=== PATIENT | male | born 2005 | race Two or more races ===

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

== ENCOUNTER 2025-01-29 12:20 | Emergency (ER) | payer OTHER ==
[~2025-01-29] VITALS: Ht 167.6 cm; Wt 81.3 kg
[~2025-01-29 12:20] MED LIST changes: +SUCR1SUS26 PO
[2025-01-29 15:45] LABS: Hemoglobin 13.0 g/dL (13.5-17.5); Nucleated Red Blood Cells % 0.1 %
[2025-01-29 15:47] LABS: Chloride 105 mmol/L (98-107); Hematocrit 40.3 % (41.0-53.0); Mean Corpuscular Hemoglobin 21.3 pg (28.0-32.0); Mean Corpuscular Volume 66.3 fL (80.0-100.0); Potassium 4.5 mmol/L (3.5-5.1); Sodium 140 mmol/L (136-145)
[2025-01-29 15:48] LABS: Anion Gap 8 (5-15); Calcium 9.7 mg/dL (8.7-10.4); Carbon Dioxide 27 mmol/L (20-31)
[2025-01-29 15:53] LABS: BUN/Creatinine Ratio 26.3 (10.0-20.0); Blood Urea Nitrogen 20 mg/dL (9-23); Glucose 88 mg/dL (74-106); Lipase 27 U/L (12-53)
--- NOTE | 2025-01-29 15:58 | ED.PDOC ---
GI ASSESSMENT HPI Comments 19M presents to the ER w/ prior MHx of Gastric Ulcer, Anemia, PUD, Peptic Ulcer Clarisse and the c/c of ABD pain. Pt reports on having had a sudden onset of palpitation/near syncope on Monday of 01/27/25. On 01/28/25 the pt started to have Epigastric/LUQ pain which was constant onto today. Denies any symptoms at this time. Patient denies any SOB, dizziness, numbness, weakness, tingling, fever, chills, or recent fall. Chief Complaint: Abdominal Pain Time Seen by MD: 15:50 Reviewed Notes: Nurses Notes, Medications, Allergies Allergies: Coded Allergies: NO KNOWN ALLERGIES (Unverified , 10/20/23) Home Meds Active Scripts Ondansetron Odt 4MG Tab (ZOFRAN PO) 4 Mg Tb, 4 MG PO TID for 10 Days, #30 TAB ODT TAB-DISSOLVE IN MOUTH, THEN SWALLOW Prov:BRAYDEN KIDD MD 01/29/25 Aluminum Hydroxide-Mag Carb (Gaviscon Extra Strength) 1 Chw Chw, 1 CHW PO TID PRN for 10 Days, #30 TAB.CHEW Prov:BRAYDEN KIDD MD 01/29/25 Pantoprazole Sodium Sesquihydr (Protonix) 40 Mg Tab, 40 MG PO DAILY for 30 Days, #30 TAB Prov:BRAYDEN KIDD MD 01/29/25 Sucralfate (CARAFATE SUSP) 1 Gm/10 Ml Ss, 1 GM PO QID@0600,1130,1700,2200, #1200 ML Prov:KYLE MANCIA MD 05/29/24 Pantoprazole Sodium Sesquihydr (Protonix) 40 Mg Tab, 40 MG PO BID, #60 TAB 2 Refills Prov:KYLE MANCIA MD 05/29/24 Polyethylene Glycol 3350 (Miralax) 17 Gm Pow, 17 GM PO DAILY for 1 Day, #1 POW Prov:CARMITA FULLER MD 02/03/24 Polyethylene Glycol 3350 (Miralax) 17 Gm Pow, 17 GM PO DAILY for 1 Day, POW Prov:CARIMTA FULLER MD 02/03/24 Thiamine Hcl (VITAMIN B-1) 100 Mg Tb, 100 MG PO DAILY@1800 for 10 Days, #10 TAB Prov:SANG CORONA MD 10/23/23 Folic Acid (Folic Acid) 1 Mg Tab, 1 MG PO DAILY@1800 for 10 Days, #10 TAB Prov:SANG CORONA MD 10/23/23 Information Source: Patient Mode of Arrival: Ambulatory Timing: Days Duration: Since onset, Days Prehospital treatment: None Quality: Aching Vomitus: None Stool: Normal Severity: Moderate Recent: None Recent Hx of: None Pain Location: Epigastric, LUQ Associated sign and symptoms: Abdominal Pain Past Medical History PAST MEDICAL HISTORY: Anemia, PUD Past Medical History (Other): Gastric Ulcer, Peptic Ulcer Inez Surgical History: Denies all surgeries Family History Family History: Reviewed,noncontributory to illness, Unknown Social History Smoker: Unknown Alcohol: Sober Drugs: Unknown Lives In: Home Constitutional: denies: chills, diaphoresis, fatigue, fever, malaise, sweats, weakness, others EENTM: denies: blurred vision, double vision, ear bleeding, ear discharge, ear drainage, ear pain, ear ringing, eye pain, eye redness, hearing loss, mouth pain, mouth swelling, nasal discharge, nose bleeding, nose congestion, nose pain, photophobia, tearing, throat pain, throat swelling, voice changes, others Respiratory: denies: cough, hemoptysis, orthopnea, SOB at rest, shortness of breath, SOB with excertion, stridor, wheezing, others Cardiovascular: reports: palpitations, syncope (near); denies: chest pain, dizzy spells, diaphoresis, Dyspnea on exertion, edema, irregular heart beat, left arm pain, lightheadedness, PND, others Gastrointestinal: reports: abdominal pain; denies: abdomen distended, blood streaked bowels, constipated, diarrhea, dysphagia, difficulty swallowing, h ematemesis, melena, nausea, poor appetite, poor fluid intake, rectal bleeding, rectal pain, vomiting, others Genitourinary: denies: burning, dysuria, flank pain, frequency, hematuria, incontinence, penile discharge, penile sore, pain, testicle pain, testicle swelling, urgency, others Neurological: denies: dizziness, fainting, headache, left sided numbness, left sided weakness, numbness, paresthesia, pre-existing deficit, right sided numbness, right sided weakness, seizure, speech problems, tingling, tremors, weakness, others Musculoskeletal: denies: back pain, gout, joint pain, joint swelling, muscle pain, muscle stiffness, neck pain, others Integumetry: denies: bruises, change in color, change in hair/nails, dryness, laceration, lesions, lumps, rash, wounds, others Allergic/Immunocompromised: denies: Difficulty Healing, Frequent Infections, Hives, Itching, others Hematologic/Lymphatic: denies: anemia, blood clots, easy bleeding, easy bruising, swollen glands, others Endocrine: denies: excessive hunger, excessive sweating, excessive thirst, excessive urination, flushing, intolerance to cold, intolerance to heat, unexplained weight gain, unexplained weight loss, others Psychiatric: denies: anxiety, bipolar disorder, depression, hopeless, panic disorder, schizophrenia, sleepless, suicidal, others All Other Systems: Reviewed and Negative Physical Exam General Appearance: Mild Distress, Normal HEENT: Normal ENT Inspection, PERRL/EOMI, Pharynx Normal, TMs Normal Neck: Full Range of Motion, Non-Tender, Normal, Normal Inspection Respiratory: Chest Non-Tender, Lungs Clear, No Accessory Muscle Use, No Re spiratory Distress, Normal Breath Sounds Cardiovascular: No Edema, No JVD, No Murmur, No Gallop, Normal Peripheral Pulses, Regular Rate/Rhythm Breast Exam: Deferred Gastrointestinal: Epigastric, No Organomegaly, No Pulsatile Mass, Normal Bowel Sounds, Soft, Tenderness Genitalia: Deferred Pelvic: Deferred Rectal: Deferred Extremities: No calf tenderness, Normal capillary refill, Normal inspection, Normal range of motion, Non-tender, No pedal edema Musculoskeletal : Apperance: Normal Neurologic: Alert, 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 Was a procedure done?: No GI differential Dx Differential Diagnosis: Gastritis/PUD, Pancreatitis, Dehydration, Diabetes/ DKA, Electrolyte Imbalance X-Ray, Labs, Meds, VS Vital Signs Date Time Temp Pulse Resp B/P (MAP) Pulse Ox O2 Delivery O2 Flow Rate FiO2 01/29/25 12:22 97.6 81 15 129/74 99 97.6 Lab Test 01/29/25 15:19 Range/Units White Blood Count 8.0 4.4-10.8 10^3/uL Red Blood Count 6.08 H 4.5-5.90 10^6/uL Hemoglobin 13.0 L 13.5-17.5 g/dL Hematocrit 40.3 L 41.0-53.0 % Mean Corpuscular Volume 66.3 L 80.0-100.0 fL Mean Corpuscular Hemoglobin 21.3 L 28.0-32.0 pg Mean Corpuscular Hemoglobin Concent 32.2 32.0-36.0 g/dL Red Cell Distribution Width 20.5 H 11.8-14.3 % Platelet Count 244 140-450 10^3/uL Mean Platelet Volume 9.0 6.9-10.8 fL Neutrophils (%) (Auto) 68.1 37.0-80.0 % Lymphocytes (%) (Auto) 24.3 10.0-50.0 % Monocytes (%) (Auto) 7.2 0.0-12.0 % Eosinophils (%) (Auto) 0.2 0.0-7.0 % Basophils (%) (Auto) 0.2 0.0-2.0 % Neutrophils # (Auto) 5.5 1.6-8.6 10 ^3/uL Lymphocytes # (Auto) 1.9 0.4-5.4 10 ^3/uL Monocytes # (Auto) 0.6 0-1.3 10 ^3/uL Eosinophils # (Auto) 0 0-0.8 10 ^3/uL Basophils # (Auto) 0 0-0.2 10 ^3/uL Nucleated Red Blood Cells 0.1 % Sodium Level 140 136-145 mmol/L Potassium Level 4.5 3.5-5.1 mmol/L Chloride Level 105 98-107 mmol/L Carbon Dioxide Level 27 20-31 mmol/L Anion Gap 8 5-15 Blood Urea Nitrogen 20 9-23 mg/dL Creatinine 0.76 0.700-1.30 mg/dL Glomerular Filtration Rate Calc 133 >90 mL/min BUN/Creatinine Ratio 26.3 H 10.0-20.0 Serum Glucose 88 74-106 mg/dL Calcium Level 9.7 8.7-10.4 mg/dL Lipase 27 12-53 U/L X-Ray, Labs, Meds, VS Comment Patient came to the emergency department complaining of epigastric pain and also nausea CBC normal BNP negative Lipase 27 Patient will be discharged home to follow up with his PCP in his GI Time of 1ST Reevaluation: 16:20 Reevaluation 1ST: Unchanged Time of 2ND Reevaluation: 16:08 Reevaluation 2ND: Improved Consultation: PCP, GI Patient Education/Counseling: Diagnosis, Treatment, Prognosis, Need For Follow Up Family Education/Counseling: Diagnosis, Treatment, Prognosis, Need For Follow Up, No Family Present SEPSIS Sepsis Screen Date sepsis recognized/suspect: Jan 29, 2025 Time Sepsis recognized/suspect: 4 Recent Procedure: No On Antibiotic Therapy: No Respiratory Rate >20: No Heart Rate >90: No Temp<36 C (96.8 F) or >38.3 C: No SBP <90 or MAP <65 mmHG: No New Acute Mental Status Change: No Is the patient on CPAP, BIPAP,: No Vital Signs Date Time Temp Pulse Resp B/P (MAP) Pulse Ox O2 Delivery O2 Flow Rate FiO2 01/29/25 12:22 97.6 81 15 129/74 99 97.6 Laboratory Tests Test 01/29/25 15:19 White Blood Count 8.0 10^3/uL (4.4-10.8) Departure 1 Departure Time of Disposition: 16:08 Impression: Primary Impression: Abdominal pain Qualified Codes: R10.13 - Epigastric pain Additional Impression: Peptic ulcer disease Disposition: HOME / SELF CARE / HOMELESS Condition: Fair Additional Instructions: Follow up with your PCP or 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 probably has a flare-up of your peptic ulcer disease e-Prescriptions Ondansetron Odt 4MG Tab (ZOFRAN PO) 4 Mg Tb 4 MG PO TID for 10 Days, #30 TAB ODT TAB-DISSOLVE IN MOUTH, THEN SWALLOW Prov: BRAYDEN KIDD MD 01/29/25 Aluminum Hydroxide-Mag Carb (Gaviscon Extra Strength) 1 Chw Chw 1 CHW PO TID PRN for 10 Days, #30 TAB.CHEW Prov: BRAYDEN KIDD MD 01/29/25 Pantoprazole Sodium Sesquihydr (Protonix) 40 Mg Tab 40 MG PO DAILY for 30 Days, #30 TAB Prov: BRAYDEN KIDD MD 01/29/25 Discharged With: Self Critical Care Note Critical Care Time?: No Stability Stability form required: No Heart Score Heart Score: Heart Score Response (Comments) Value History N/A 0 EKG N/A 0 Age <45 0 Risk Factors No known risk factors 0 Troponin N/A 0 Total 0 I personally scribed for BRAYDEN KIDD MD ([email or web address]) on 01/29/25 at 15:58. Electronically submitted by Shahzad Manzanares ([email or web address]). BRAYDEN KIDD MD Jan 29, 2025 15:58
[2025-01-29] MEDS ORDERED: ALUMCHW6 PO (16:14)
[2025-01-29] MEDS ORDERED: ZOFR4T PO (16:14)
[2025-01-29] MEDS ORDERED: PANT40TA2 PO (16:14)
[2025-01-29] MEDS: DONNATAL 5ml ORAL Elix (BELLADONNA ALK-PHENOBARB) PO ONE (16:36)
[2025-01-29] MEDS: MAALOX PLUS or MAALOX 30 ML PO ONE (16:37)
[2025-01-29] MEDS: PANTOPRAZOLE 40 MG TAB PO ONE (16:37)
[2025-01-29] MEDS: LIDOCAINE VISCOUS 2% 15ML UD PO ONE (16:37)
[2025-01-29 17:00] VITALS: BP 132/67; PULSE 76; RESP 18; TEMP 98; O2SAT 98
== END 2025-01-29 17:05 | disposition home or self-care (01) ==
LOC: ER 12:20
DX: K27.9 Peptic ulcer, site unspecified, unspecified as acute or chronic, without hemorrhage or perforation (principal); R10.13 Epigastric pain; Z79.899 Other long term (current) drug therapy
CPT/HCPCS: 36415; 80048; 83690; 85025

== ENCOUNTER 2025-02-03 12:17 | Emergency (ER) | payer OTHER ==
[~2025-02-03] VITALS: Ht 165.1 cm; Wt 84.8 kg
[~2025-02-03 12:17] MED LIST changes: +ALUMCHW6 PO; +ZOFR4T PO
--- NOTE | 2025-02-03 13:06 | ED.PDOC ---
History of Present Illness HPI Comments This is a 19 year old male presenting to the ED with chief complaint of work clearance. Patient reports that he had been seen on 01/29/25 for abdominal pain. Patient relays that he was advised by his job to obtain clearance to go back to work from the ED. Patient denies any N/V, chest pain, SOB, headache, numbness, weakness, or injury. Chief Complaint: Medical Clearance Time Seen by MD: 13:04 Reviewed Notes: Nurses Notes, Medications, Allergies Allergies: Coded Allergies: NO KNOWN ALLERGIES (Unverified , 10/20/23) Home Meds Active Scripts Ondansetron Odt 4MG Tab (ZOFRAN PO) 4 Mg Tb, 4 MG PO TID for 10 Days, #30 TAB ODT TAB-DISSOLVE IN MOUTH, THEN SWALLOW Prov:BRAYDEN KIDD MD 01/29/25 Aluminum Hydroxide-Mag Carb (Gaviscon Extra Strength) 1 Chw Chw, 1 CHW PO TID PRN for 10 Days, #30 TAB.CHEW Prov:BRAYDEN KIDD MD 01/29/25 Pantoprazole Sodium Sesquihydr (Protonix) 40 Mg Tab, 40 MG PO DAILY for 30 Days, #30 TAB Prov:BRAYDEN KIDD MD 01/29/25 Sucralfate (CARAFATE SUSP) 1 Gm/10 Ml Ss, 1 GM PO QID@0600,1130,1700,2200, #1200 ML Prov:KYLE MANCIA MD 05/29/24 Pantoprazole Sodium Sesquihydr (Protonix) 40 Mg Tab, 40 MG PO BID, #60 TAB 2 Refills Prov:KYLE MANCIA MD 05/29/24 Polyethylene Glycol 3350 (Miralax) 17 Gm Pow, 17 GM PO DAILY for 1 Day, #1 POW Prov:CARMITA FULLER MD 02/03/24 Polyethylene Glycol 3350 (Miralax) 17 Gm Pow, 17 GM PO DAILY for 1 Day, POW Prov:CARMITA FULLER MD 02/03/24 Thiamine Hcl (VITAMIN B-1) 100 Mg Tb, 100 MG PO DAILY@1800 for 10 Days, #10 TAB Prov:SANG CORONA MD 10/23/23 Folic Acid (Folic Acid) 1 Mg Tab, 1 MG PO DAILY@1800 for 10 Days, #10 TAB Prov:SANG CORONA MD 10/23/23 Information Source: Patient Mode of Arrival: Ambulatory Severity: Mild Timing: Days Duration: Since onset Prehospital treatment: None Past Medical History PAST MEDICAL HISTORY: Anemia, PUD Surgical History: Denies all surgeries Family History Family History: Reviewed,noncontributory to illness, Unknown Social History Smoker: Non-Smoker, Unknown Alcohol: Sober Drugs: Denies Drug Use Lives In: Home Constitutional: denies: chills, diaphoresis, fatigue, fever, malaise, sweats, weakness, others EENTM: denies: blurred vision, double vision, ear bleeding, ear discharge, ear drainage, ear pain, ear ringing, eye pain, eye redness, hearing loss, mouth pain, mouth swelling, nasal discharge, nose bleeding, nose congestion, nose pain, photophobia, tearing, throat pain, throat swelling, voice changes, others Respiratory: denies: cough, hemoptysis, orthopnea, SOB at rest, shortness of breath, SOB with excertion, stridor, wheezing, others Cardiovascular: denies: chest pain, dizzy spells, diaphoresis, Dyspnea on exertion, edema, irregular heart beat, left arm pain, lightheadedness, palpitations, PND, syncope, others Gastrointestinal: reports: abdominal pain; denies: abdomen distended, blood streaked bowels, constipated, diarrhea, dysphagia, difficulty swallowing, hematemesis, melena, nausea, poor appetite, poor fluid intake, rectal bleeding, rectal pain, vomiting, others Genitourinary: denies: burning, dysuria, flank pain, frequency, hematuria, incontinence, penile discharge, penile sore, pain, testicle pain, testicle swelling, urgency, others Neurological: reports: dizziness; denies: fainting, headache, left sided numbness, left sided weakness, numbness, paresthesia, pre-existing deficit, r ight sided numbness, right sided weakness, seizure, speech problems, tingling, tremors, weakness, others Musculoskeletal: denies: back pain, gout, joint pain, joint swelling, muscle pain, muscle stiffness, neck pain, others Integumetry: denies: bruises, change in color, change in hair/nails, dryness, laceration, lesions, lumps, rash, wounds, others Allergic/Immunocompromised: denies: Difficulty Healing, Frequent Infections, Hives, Itching, others Hematologic/Lymphatic: denies: anemia, blood clots, easy bleeding, easy bruising, swollen glands, others Endocrine: denies: excessive hunger, excessive sweating, excessive thirst, excessive urination, flushing, intolerance to cold, intolerance to heat, unexplained weight gain, unexplained weight loss, others Psychiatric: denies: anxiety, bipolar disorder, depression, hopeless, panic disorder, schizophrenia, sleepless, suicidal, others All Other Systems: Reviewed and Negative Physical Exam General Appearance: No Apparent Distress, Normal HEENT: Normal ENT Inspection, Pharynx Normal, TMs Normal Neck: Full Range of Motion, Non-Tender, Normal, Normal Inspection Respiratory: Chest Non-Tender, Lungs Clear, No Accessory Muscle Use, No Respiratory Distress, Normal Breath Sounds Cardiovascular: No Edema, No JVD, No Murmur, No Gallop, Normal Peripheral Pulses, Regular Rate/Rhythm Breast Exam: Deferred Gastrointestinal: No Organomegaly, Non Tender, No Pulsatile Mass, Normal Bowel Sounds, Soft Genitalia: Deferred Pelvic: Deferred Rectal: Deferred Extremities: No calf tenderness, Normal capillary refill, Normal inspection, Normal range of motion, Non-tender, No pedal edema Musculoskeletal : Apperance: Normal Neurologic: Alert, group burner machine II-XII nml as Tested, No Motor Deficits, Normal Affect, Normal Mood, No Sensory Deficits Cerebellar Function: Normal Reflexes: Normal Skin: Dry, Normal Color, Warm Lymphatic: No Adenopathy Was a procedure done? Was a procedure done?: No Differential Dx Considerations may include: Work clearance X-Ray, Labs, Meds, VS Vital Signs Date Time Temp Pulse Resp B/P (MAP) Pulse Ox O2 Delivery O2 Flow Rate FiO2 02/03/25 13:25 98.2 86 16 128/62 (84) 100 98.2 02/03/25 13:25 86 16 100 Room Air 02/03/25 12:21 97.6 90 16 132/63 100 97.6 X-Ray, Labs, Meds, VS Comment This is a 19 year old male presenting to the ED with chief complaint of work clearance. Patient arrives alert and oriented, ABC's intact, afebrile, vital signs stable, saturating well in room air Patient is stable for discharge at this time. External notes reviewed. Test results and diagnostic imaging interpreted. All diagnostic findings, discharge care, education and instructions provided Follow-up with PCP in 2 to 3 days Patient verbalized understanding and agreed to treatment plan Vital signs stable, afebrile, no acute distress noted Patient ambulatory with strong steady gait Advised to return precautions for any new or worsening symptoms, return to ER immediately for re-evaluation Patient is aware that the purpose of this visit was for an acute medical emergency requiring emergent stabilization. Chronic conditions, including malignancies have not been ruled out. Patient is instructed to follow up with PCP as directed and discharge instructions for continued care and workup. If unable to arrange follow-up, patient is to return to the emergency department for reassessment. Patient (parent or legal guardian if applicable) was given verbal and written discharge instructions and acknowledges understanding. Additional MDM Review of External, Non-ED records: External records reviewed. Discussion with independent historian (EMS, family) history obtained from the patient/parents (if applicable) at bedside Chronic conditions affecting care: None Social determinants of health affecting care: None Consideration of admission (observation or admission): I considered escalation of care to admission for this patient, however given the reassuring workup, the patient is safe for outpatient management. Discussion with the Radiology: No Tests considered but not performed: None Prescription medication considered but not given: None Time of 1ST Reevaluation: 13:00 Reevaluation 1ST: Unchanged Patient Education/Counseling: Diagnosis, Treatment Family Education/Counseling: No Family Present SEPSIS Sepsis Screen Date sepsis recognized/suspect: Feb 03, 2025 Time Sepsis recognized/suspect: 1222 Recent Procedure: No On Antibiotic Therapy: No Respiratory Rate >20: No Heart Rate >90: No Temp<36 C (96.8 F) or >38.3 C: No SBP <90 or MAP <65 mmHG: No New Acute Mental Status Change: No Is the patient on CPAP, BIPAP,: No Vital Signs Date Time Temp Pulse Resp B/P (MAP) Pulse Ox O2 Delivery O2 Flow Rate FiO2 02/03/25 13:25 98.2 86 16 128/62 (84) 100 98.2 02/03/25 13:25 86 16 100 Room Air 02/03/25 12:21 97.6 90 16 132/63 100 97.6 Departure 1 Departure Time of Disposition: 13:03 Impression: Primary Impression: Abdominal pain Qualified Codes: R10.84 - Generalized abdominal pain Disposition: 01 HOME / SELF CARE / HOMELESS Condition: Stable Discharged With: Self Critical Care Note Critical Care Time?: No Stability Stability form required: No Heart Score Heart Score: Heart Score Response (Comments) Value History N/A 0 EKG N/A 0 Age N/A 0 Risk Factors N/A 0 Troponin N/A 0 Total 0 I personally scribed for LELIA PAGAN NP ([email or web address]) on 02/03/25 at 13:06. Electronically submitted by Ed Coronado ([email or web address]). LELIA PAGAN NP Feb 03, 2025 13:06
[2025-02-03 13:25] VITALS: BP 128/62; PULSE 86; RESP 16; TEMP 98.2; O2SAT 100
== END 2025-02-03 13:27 | disposition home or self-care (01) ==
LOC: ER 12:17
DX: R10.9 Unspecified abdominal pain (principal); Z02.1 Encounter for pre-employment examination; Z79.899 Other long term (current) drug therapy; Z87.11 Personal history of peptic ulcer disease